=== PATIENT | male | born 1990 ===

== ENCOUNTER 2022-04-26 23:10 | Emergency (ER) | payer SELFPAY ==
[2022-04-26 23:40] VITALS: BP 123/81
[2022-04-26] MEDS ORDERED: ACETAMINOPHEN 500 MG TAB PO ONE (23:41)
== END 2022-04-27 05:10 | disposition left against medical advice (07) ==
LOC: ED 23:10
DX: R50.9 Fever, unspecified (principal); R06.02 Shortness of breath; M79.18 Myalgia, other site; Z53.21 Procedure and treatment not carried out due to patient leaving prior to being seen by health care provider